=== PATIENT | female | born 1990 | race Caucasian/White ===

== ENCOUNTER 2020-04-30 23:59 | Emergency (ER) | payer SELFPAY ==
[~2020-04-30] VITALS: Ht 157.5 cm; Wt 58.1 kg
[2020-05-01 00:49] LABS: Basophils # (auto) 0.1 10 ^3/uL (0-0.2); Basophils % (auto) 0.9 % (0.0-2.0); Eosinophils # (auto) 0.3 10 ^3/uL (0-0.8); Eosinophils % (auto) 3.9 % (0.0-7.0); Hematocrit 40.2 % (36.0-46.0); Hemoglobin 13.5 g/dL (12.2-16.2); Lymphocytes # (auto) 2.2 10 ^3/uL (0.4-5.4); Lymphocytes % (auto) 32.2 % (10.0-50.0); Mean Corpuscular Hemoglobin 29.6 pg (28.0-32.0); Mean Corpuscular Hgb Conc. 33.7 g/dL (32.0-36.0); Mean Corpuscular Volume 87.9 fL (80.0-100.0); Monocytes # (auto) 0.6 10 ^3/uL (0-1.3); Monocytes % (auto) 9.2 % (0.0-12.0); Neutrophils # (auto) 3.7 10 ^3/uL (1.6-8.6); Neutrophils % (auto) 53.8 % (37.0-80.0); Nucleated Red Blood Cells % 0.1 %; Platelet Count (auto) 289 10^3/uL (140-450); Red Blood Cells 4.57 10^6/uL (4.0-5.20); Red Cell Distribution Width 13.1 % (11.8-14.3); White Blood Cell 6.8 10^3/uL (4.4-10.8)
[2020-05-01 01:05] LABS: Albumin 3.7 g/dL (3.4-5.0); Anion Gap 7 (5-15); Calcium 8.8 mg/dL (8.5-10.1); Carbon Dioxide 24 mmol/L (21-32); Chloride 107 mmol/L (98-107); Glucose 74 mg/dL (74-106); Potassium 3.8 mmol/L (3.5-5.1); Sodium 138 mmol/L (136-145)
[2020-05-01 01:08] LABS: Alanine Aminotransferase 26 U/L (13-56); Aspartate Aminotransferase 13 U/L (15-37); GFR African American 102 mL/min; GFR Non-African American 85 mL/min
[2020-05-01 01:13] LABS: Alkaline Phosphatase 48 U/L (45-117); Bilirubin, Total 0.4 mg/dL (0.2-1.0); Total Protein 7.3 g/dL (6.4-8.2)
[2020-05-01 01:43] LABS: Blood Urea Nitrogen 10 mg/dL (7-18)
[2020-05-01] MEDS ORDERED: hydrOXYzine 25 MG TAB or CAP PO ONE (03:45)
[2020-05-01 04:15] VITALS: BP 113/69
== END 2020-05-01 04:19 | disposition home or self-care (01) ==
LOC: ER 05-01 00:01
DX: F41.9 Anxiety disorder, unspecified (principal); F15.10 Other stimulant abuse, uncomplicated; F17.210 Nicotine dependence, cigarettes, uncomplicated
CPT/HCPCS: 36415; 71045; 80053; 84484; 85025; 85379; 93005